=== PATIENT | male | born 1950 | race Caucasian/White ===

== ENCOUNTER 2017-12-17 09:30 | Outpatient (RCR) | payer MEDICARE, SELFPAY ==
--- NOTE | 2017-10-06 10:40 | HMH.PTOPWND ---
Rehab Outpt Wound Evaluation Rehab OP Wound Evaluation Start: 10/06/17 10:27 Freq: Status: Active Protocol: Document 10/06/17 10:27 DOUGLAS (Rec: 10/06/17 10:40 DOUGLAS [id number]) Electronically Signed By Rizwan De La Rosa, PT 10/06/17 10:27 Subjective/History History History Pt presents ~1.5 mos s/p sudden onset of necrotizing fasciitis while vacationing in [place] and requiring multiple left LE fasciotomies. He reports he was hospitalized for 22 days while receiving IV abx. He and his returned to [place] yesterday and his dressings were last changed 2 days ago. He currently reports only mild/moderate discomfort with the left LE and his edema has reduced considerably. Subjective Subjective Currently no c/o with dresing changes. Wound Eval Wound Left Lateral Heel Wound Type fasciotomy Wound Bed Appearance Beefy Red Yellow Percentage Granulated (%) 80 Percentage of Eschar (Yellow) (%) 20 Wound Margins Description Well Defined Drainage Description Serosanguineous Drainage Amount Small Drainage Odor No Odor Wound Topical Solution/Irrigant Saline Irrigant Packing Type Collagen Primary Dressing Silver Dressing Wound Secondary Dressing Type Gauze Pad Wound Debridement Method Forceps Left Medial Ankle Wound Type facsiotomy Wound Length (cm) 9.7 Wound Width (cm) 1.8 Wound Bed Appearance Beefy Red Percentage Granulated (%) 100 Wound Margins Description Well Defined Drainage Description Serosanguineous Drainage Amount Moderate Drainage Odor No Odor Dressing Status Soiled Wound Topical Solution/Irrigant Saline Irrigant Packing Type Collagen Primary Dressing Silver Dressing Wound Secondary Dressing Type Gauze Pad Wound Debridement Method Forceps Left Anterior Medial Vu Wound Type fasciotomy Wound Length (cm) 7.0 Wound Width (cm) 1.3 Wound Bed Appearance Beefy Red Percentage Granulated (%) 100 Wound Margins Description Well Defined Drainage Description
== END 2017-12-17 09:31 | disposition home or self-care (01) ==
LOC: PT 09:30
PROVIDERS: Family Provider Family Medicine; PCP Family Medicine; Visit Provider Family Medicine
DX: M72.6 Necrotizing fasciitis (principal)
CPT/HCPCS: 97140; 97163; 97597; 97598

== ENCOUNTER → 2018-05-31 13:21 | Outpatient (POV) | payer MEDICARE, SELFPAY | PROVIDERS: Family Provider Family Medicine; PCP Family Medicine; Visit Provider Dermatology | DX: Z00.00 Encounter for general adult medical examination without abnormal findings (principal) ==

== ENCOUNTER → 2018-11-16 08:33 | Outpatient (CLI) | payer MEDICARE, SELFPAY ==
[2018-11-24 23:20] LABS: F004-IgE Wheat <0.10 kU/L (Class 0); F024-IgE Shrimp <0.10 kU/L (Class 0); F040-IgE Tuna <0.10 kU/L (Class 0); F041-IgE Salmon <0.10 kU/L (Class 0); F338-IgE Scallop <0.10 kU/L (Class 0)
[2018-11-25 09:04] LABS: F013-IgE Peanut <0.10 kU/L (Class 0); F048-IgE Onion <0.10 kU/L (Class 0); Immunoglobulin E, Total <2 IU/mL (6-495)
== END ==
PROVIDERS: Visit Provider Allergy & Immunology
DX: T78.1XXA Other adverse food reactions, not elsewhere classified, initial encounter (principal); L29.9 Pruritus, unspecified; T78.40XA Allergy, unspecified, initial encounter
CPT/HCPCS: 36415; 82785; 86003

== ENCOUNTER → 2018-12-13 12:42 | Outpatient (POV) | payer MEDICARE, SELFPAY | PROVIDERS: Visit Provider Dermatology | DX: Z00.00 Encounter for general adult medical examination without abnormal findings (principal) ==

== ENCOUNTER → 2018-12-13 13:39 | Outpatient (CLI) | payer MEDICARE, SELFPAY ==
[2018-12-13 14:04] LABS: Microscopic, Urine URINE MICROSCOPIC (MICROSCOPIC)
[2018-12-13 14:47] LABS: Basophils % 0.3 % (0.1-2.0); Eosinophils # 0.1 K/mm3 (0.0-0.4); Eosinophils % 0.7 % (0.1-12.0); Hematocrit 45.7 % (42.0-52.0); Hemoglobin 15.6 g/dL (14.1-18.0); Lymphocytes # 1.1 K/mm3 (0.7-4.5); Lymphocytes % 15.3 % (10-50); Mean Corpuscular HGB Conc 34.1 g/dL (31.8-35.4); Mean Corpuscular Hemoglobin 33.1 pg (27.0-31.2); Mean Corpuscular Volume 97.3 fl (80-94); Mean Platelet Volume 7.5 fl (7.4-10.4); Monocytes # 0.7 K/mm3 (0.1-1.0); Monocytes % 9.4 % (1.7-9.3); Neutrophils # 5.1 K/mm3 (1.8-7.8); Neutrophils % 74.1 % (37.0-80.0); Platelet Count 211 K/mm3 (142-424); Red Blood Count 4.69 M/mm3 (4.60-6.20); Red Cell Distribution Width 13.1 % (11.5-17.5); White Blood Count 6.9 K/mm3 (4.8-10.8)
[2018-12-13 14:58] LABS: Appearance,Urine CLEAR (Clear); Bilirubin,Urine Negative (Negative); Blood, Urine Negative (Negative); Color,Urine YELLOW (Yellow); Glucose,Urine (UA) Negative (Negative); Ketones,Urine Negative (Negative); Leukocyte Esterase,Urine Negative (Negative); Nitrate,Urine Negative (Negative); Protein,Urine Negative (Negative); Urobilinogen,Urine 0.2 EU/dl (0.2)
[2018-12-13 15:13] LABS: Bacteria,Urine Trace /lpf; Squamous Epithelial Cell,Urine Occasional #/hpf (0-5); WBC,Urine Occasional #/hpf (0-3)
[2018-12-13 16:39] LABS: Alanine Aminotransferase 80 U/L (12-78); Albumin Level 4.4 gm/dL (3.4-5.0); Albumin/Globulin Ratio 1.5 (1.1-1.8); Alkaline Phosphatase 63 U/L (46-116); Anion Gap 17.4 mEq/L (5-15); Aspartate Amino Transferase 30 U/L (15-37); Bilirubin,Total 0.6 mg/dL (0.2-1.0); Blood Urea Nitrogen 25 mg/dL (7-18); Calcium 9.1 mg/dL (8.5-10.1); Carbon Dioxide 23 mmol/L (21.0-32.0); Chloride 105 mmol/L (98-107); Creatinine,Serum 0.91 mg/dL (0.70-1.30); Estimated Glomerular Filt Rate 83 ml/min (>60); GFR (African American) 100 ML/MIN (>60); Globulin 2.9 gm/dl (1.3-3.2); Glucose 96 mg/dL (74-106); Lactate Dehydrogenase 205 U/L (82-234); Potassium 4.4 mmoL/L (3.5-5.1); Sodium 141 mmol/L (136-145); T4 (Thyroxine) 4.7 ug/dl (4.7-13.3); Thyroid Stimulating Hormone 1.64 uIU/ml (0.358-3.740); Total Protein,Serum 7.3 gm/dL (6.4-8.2)
[2018-12-17 06:40] LABS: QuantiFERON-TB Gold Plus Negative (Negative)
== END ==
PROVIDERS: Visit Provider Dermatology
DX: L63.8 Other alopecia areata (principal); L30.8 Other specified dermatitis
CPT/HCPCS: 36415; 80053; 81001; 83615; 84436; 84443; 85025; 86480

== ENCOUNTER → 2020-03-04 08:42 | Outpatient (CLI) | payer MEDICARE, SELFPAY ==
[2020-03-04 10:23] LABS: Coronavirus 19 IgM Antibody Negative (Negative)
[2020-03-04 10:30] LABS: Coronavirus 19 IgG Antibody Positive (Negative)
== END ==
PROVIDERS: Visit Provider Ophthalmology
DX: Z01.818 Encounter for other preprocedural examination (principal)
CPT/HCPCS: 36415; 86328

== ENCOUNTER 2020-03-05 07:41 | Day surgery (SDC) | payer MEDICARE, SELFPAY ==
[2020-02-29 15:56] VITALS: BMI 25.0
[2020-03-05 07:58] VITALS: BP 142/92; PULSE 59; RESP 20; TEMP 36.3; O2SAT 96
[2020-03-05 09:06] VITALS: BP 155/88; PULSE 48; RESP 20; O2SAT 98
[2020-03-05 09:11] VITALS: BP 152/97; PULSE 51; RESP 18; O2SAT 98
[2020-03-05 09:16] VITALS: BP 160/97; PULSE 52; RESP 18; O2SAT 98
[2020-03-05 09:21] VITALS: BP 154/96; PULSE 53; RESP 20; O2SAT 99
[2020-03-05 09:25] VITALS: BP 151/89; PULSE 53; RESP 16; TEMP 36.3; O2SAT 97
== END 2020-03-05 09:30 | disposition home or self-care (01) ==
LOC: OR 07:43
PROVIDERS: PCP Family Medicine; Visit Provider Ophthalmology
DX: H26.9 Unspecified cataract (principal); H53.8 Other visual disturbances; M19.90 Unspecified osteoarthritis, unspecified site; H91.90 Unspecified hearing loss, unspecified ear; E78.00 Pure hypercholesterolemia, unspecified
CPT/HCPCS: 66984; V2632

== ENCOUNTER → 2020-03-18 08:43 | Outpatient (CLI) | payer MEDICARE, SELFPAY ==
[2020-03-18 11:09] LABS: Coronavirus 19 IgM Antibody Negative (Negative)
[2020-03-18 12:26] LABS: Coronavirus 19 IgG Antibody Positive (Negative)
== END ==
PROVIDERS: Visit Provider Ophthalmology
DX: Z01.818 Encounter for other preprocedural examination (principal); H26.9 Unspecified cataract
CPT/HCPCS: 36415; 86328

== ENCOUNTER 2020-03-19 06:37 | Day surgery (SDC) | payer MEDICARE, SELFPAY ==
[2020-03-13 08:24] VITALS: BMI 25.0
[2020-03-19 07:09] VITALS: BP 135/79; PULSE 57; RESP 20; TEMP 36.1; O2SAT 94
[2020-03-19 08:20] VITALS: BP 166/81; PULSE 54; RESP 20; O2SAT 98
[2020-03-19 08:25] VITALS: BP 158/89; PULSE 55; RESP 20
[2020-03-19 08:30] VITALS: BP 157/93; PULSE 55; RESP 18; O2SAT 97
[2020-03-19 08:35] VITALS: BP 156/94; PULSE 61; RESP 18; O2SAT 98
[2020-03-19 08:39] VITALS: BP 156/81; PULSE 58; RESP 20; TEMP 36.4; O2SAT 97
== END 2020-03-19 08:49 | disposition home or self-care (01) ==
LOC: OR 06:40
PROVIDERS: PCP Family Medicine; Visit Provider Ophthalmology
DX: H26.9 Unspecified cataract (principal); M19.90 Unspecified osteoarthritis, unspecified site; E78.00 Pure hypercholesterolemia, unspecified; H91.90 Unspecified hearing loss, unspecified ear; Z79.899 Other long term (current) drug therapy
CPT/HCPCS: 66984; V2632

== ENCOUNTER → 2021-07-03 08:47 | Outpatient (POV) | payer MEDICARE, SELFPAY | PROVIDERS: Visit Provider Audiologist | DX: Z00.00 Encounter for general adult medical examination without abnormal findings (principal) ==

== ENCOUNTER → 2021-08-01 10:14 | Outpatient (CLI) | payer MEDICARE, SELFPAY ==
[2021-08-01 11:01] LABS: Basophils % 0.6 % (0.1-2.0); Eosinophils # 0.1 K/mm3 (0.0-0.4); Eosinophils % 1.5 % (0.1-12.0); Hematocrit 49.1 % (42.0-52.0); Hemoglobin 17.3 g/dL (14.1-18.0); Lymphocytes # 0.8 K/mm3 (0.7-4.5); Lymphocytes % 13.9 % (10-50); Mean Corpuscular HGB Conc 35.1 g/dL (31.8-35.4); Mean Corpuscular Hemoglobin 35.2 pg (27.0-31.2); Mean Corpuscular Volume 100.1 fl (80-94); Mean Platelet Volume 8.5 fl (7.4-10.4); Monocytes # 0.6 K/mm3 (0.1-1.0); Monocytes % 10.7 % (1.7-9.3); Neutrophils # 4.2 K/mm3 (1.8-7.8); Neutrophils % 73.3 % (37.0-80.0); Platelet Count 204 K/mm3 (142-424); Red Blood Count 4.91 M/mm3 (4.60-6.20); Red Cell Distribution Width 12.7 % (11.5-17.5); White Blood Count 5.7 K/mm3 (4.8-10.8)
[2021-08-01 11:26] LABS: Hemoglobin A1C 5.9 % (4.0-6.0)
[2021-08-01 11:34] LABS: Alanine Aminotransferase 63 U/L (12-78); Albumin Level 4.6 g/dl (3.5-5.0); Albumin/Globulin Ratio 1.7 (1.1-1.8); Alkaline Phosphatase 57 U/L (38-126); Anion Gap 8.7 mEq/L (5-15); Aspartate Amino Transferase 45 U/L (17-59); Bilirubin,Total 0.7 mg/dl (0.2-1.3); Blood Urea Nitrogen 13 mg/dl (9-20); Calcium 9.4 mg/dl (8.4-10.2); Carbon Dioxide 29 mmol/L (22.0-30.0); Chloride 104 mmol/L (98-107); Chol/HDL Ratio 2.6 (1-3.5); Cholesterol 205 mg/dl (140-200); Estimated Glomerular Filt Rate 111 ml/min (>60); GFR (African American) 135 ML/MIN (>60); Globulin 2.7 g/dL (1.3-3.2); Glucose 119 mg/dl (74-100); HDL Cholesterol 80 mg/dl (40-60); Potassium 4.7 mmoL/L (3.5-5.1); Sodium 137 mmol/L (136-145); Total Protein,Serum 7.3 g/dl (6.3-8.2); Triglycerides 78 mg/dl (30-150); Uric Acid 6.1 mg/dl (3.5-8.5); VLDL Cholesterol 16 mg/dL (0-40)
[2021-08-01 11:45] LABS: Direct LDL Cholesterol 116.95 mg/dL (100-129)
[2021-08-01 12:05] LABS: Thyroid Stimulating Hormone 1.52 uIU/mL (0.465-4.68)
== END ==
PROVIDERS: Visit Provider Family Medicine
DX: R03.0 Elevated blood-pressure reading, without diagnosis of hypertension (principal); R73.01 Impaired fasting glucose; E78.5 Hyperlipidemia, unspecified
CPT/HCPCS: 36415; 80053; 80061; 83036; 84443; 84550; 85025

== ENCOUNTER → 2021-08-04 07:50 | Outpatient (CLI) | payer MEDICARE, SELFPAY ==
--- NOTE | 2021-08-04 07:51 | MR_ITS ---
PROCEDURE: MR HEAD/BRAIN WO/W CON CLINICAL INDICATION: left hearing loss COMPARISON: No exams were available for comparison TECHNIQUE: Routine multiplanar multi echo sequences are performed without gadolinium enhancement. FINDINGS: No midline shift, mass effect, intracranial hemorrhage, or hydrocephalus. No enhancing lesions. Thin section pre and post axial and coronal images are obtained of the cerebellopontine angles. No CP angle mass or abnormal enhancement. No evidence of acute infarction. The pituitary, optic chiasm, corpus callosum, and craniocervical junction have an unremarkable appearance. No mastoid effusion or sinus air-fluid level. IMPRESSION: No acute intracranial findings. No evidence of cerebellopontine angle mass. Dictated by: Phoenix Aceves MD 08/05/2021 08:39 Phoenix Aceves MD in [place] 08/05/2021 08:39
== END ==
PROVIDERS: PCP Family Medicine; Visit Provider Otolaryngology
DX: H61.22 Impacted cerumen, left ear (principal); H90.42 Sensorineural hearing loss, unilateral, left ear, with unrestricted hearing on the contralateral side
CPT/HCPCS: 70553; A9576

== ENCOUNTER 2022-10-16 07:17 | Day surgery (SDC) | payer MEDICARE, SELFPAY ==
[2022-10-14 14:05] VITALS: BMI 26.7
[2022-10-16 07:33] VITALS: BP 144/96; PULSE 85; RESP 18; TEMP 36.3; O2SAT 98
--- NOTE | 2022-10-16 08:16 | P.PN_ITS ---
[facility] Disclaimer: The information contained in this section may have been updated after the patient was seen, as this information can be updated by other users. Medical History History of gastroesophageal reflux (GERD) Hyperlipidemia Leg wound, left Rheumatoid arthritis Surgical History History of surgery on lower extremity Family History Other Family history of cancer Family history of diabetes mellitus type II Social History Smoking Status: Never smoker alcohol intake: current substance use type: denies use current occupational status: retired Travel in the last 8 weeks: Inside the [place] household members: spouse housing: house marital status: education level: college current occupational exposures/hazards: No caffeine: Yes special josh needs: No agree to transfusion: No do you feel safe at home: Yes victim of physical abuse: No victim of emotional abuse: No victim of sexual abuse: No would you like helpful sources: No [facility] Anesthesia Checklist Patient Identification Patient Identification: Arm Band Structural Data Admitted From: Home Planned Operative Procedure/s: colonoscopy Consent for Planned Operative Procedure(s) Verified: Yes Verified Documents: Surgical Consent and History and Physical NPO Status Verified Time NPO: 00:00 Additional verifications Anesthesia Reactions: No Airway Assessment C-Spine Mobility Assessed: Yes TMJ Mobility Assessed: Yes Dentition: Good Dentition Neurological Assessment Level of Consciousness: Awake and Alert Anesthesia Plan Anesthesia Risk discussed: Yes Anesthesia Plan: Verified ASA Class: II Anesthesia Type: MAC
[2022-10-16 08:21] VITALS: O2SAT 98
[2022-10-16 09:00] VITALS: BP 94/57; PULSE 64; RESP 16; TEMP 36.6; O2SAT 92
--- NOTE | 2022-10-16 09:00 | P.PCN_ITS ---
Procedure: Date: 10/16/22 Patient Date of :: 1950 Procedure Performed:: Total colonoscopy to terminal ileum Indications:: Patient is a 72-year-old male referred for screening colonoscopy for history of polyps. 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 I did colonoscopy on 04/07/2016 and he had several polyps. He underwent MiraLAX prep Performing Provider:: Greg Medina MD Referring Provider:: Sam Ramos Sedation:: MAC sedation Procedure:: Patient history was obtained and appropriate physical examination was performed. Patient's medications and allergies were reviewed. Informed consent was obtained after explaining the benefits, alternatives, and risks of the procedure including, but not limited to, bleeding, perforation, missed lesions, and adv erse reaction to anesthesia medications. Patient was transported to endoscopy procedure room. Patient was connected to monitoring devices. Throughout the procedure the patient's blood pressure, pu lse, and oxygen saturations were monitored continuously. Patient identification and planned procedure were verified by the staff. Patient was positioned in lateral decubitus position. Digital anorectal exam was performed. Variable stiffness Olympus colonoscope was inserted and advanced under direct visualization to the cecum. Adequacy of the colonic preparation was noted. The colonoscope was advanced a short distance into the terminal ileum. The colonoscope was then slowly withdrawn while carefully examining the color, texture, anatomy, and integrity of the mucosoa circumferentially. Within the rectum retroflexion was performed. Colonoscope was then withdrawn. Findings:: Colonic preparation was rather poor with stool adherent to the jacobs of the colon. Despite high-volume trans colonoscopic irrigation and suctioning this was unable to be cleared. Colonoscope was withdrawn through the colon with surveillance using high-volume irrigation and suctioning. There were no large polyps or masses. Retroflexion revealed prolapsing internal hemorrhoids. Recommendations:: Repeat colonoscopy a couple of years with maximum prep. Complications:: None immediate Estimated blood obtained (mL): 0
[2022-10-16 09:10] VITALS: BP 91/56; PULSE 61; RESP 16; O2SAT 91
[2022-10-16 09:20] VITALS: BP 94/62; PULSE 64; RESP 16; O2SAT 95
[2022-10-16 09:30] VITALS: BP 107/74; PULSE 66; RESP 16; TEMP 36.6; O2SAT 99
--- NOTE | 2022-10-16 10:29 | SUR.PHASEII ---
follow-up not needed. spoke w/ office staff and made them aware that he will need to be rescheduled for another colonoscopy w/ extended/ diff prep
== END 2022-10-16 09:40 | disposition home or self-care (01) ==
PROVIDERS: PCP Family Medicine; Visit Provider Surgery
PROC: 0DJD8ZZ Inspection of Lower Intestinal Tract, Via Natural or Artificial Opening Endoscopic (ICD-10-PCS; principal; 2022-10-16 08:30)
DX: Z12.11 Encounter for screening for malignant neoplasm of colon (principal); Z86.010 Personal history of colon polyps; Z91.199 Patient's noncompliance with other medical treatment and regimen due to unspecified reason; K64.8 Other hemorrhoids; Z79.899 Other long term (current) drug therapy
CPT/HCPCS: G0105; J2704

== ENCOUNTER → 2024-03-03 08:39 | Outpatient (CLI) | payer MEDICARE, SELFPAY | LOC: SL 08:41 | PROVIDERS: PCP Family Medicine; Visit Provider Family Medicine | DX: G47.33 Obstructive sleep apnea (adult) (pediatric) (principal) | CPT/HCPCS: G0399 ==

== ENCOUNTER 2025-06-15 07:24 | Day surgery (SDC) | payer MEDICARE, SELFPAY ==
[2025-06-12 14:01] VITALS: BMI 27.8
[2025-06-15] VITALS (7 sets, daily range): BP systolic 83–150; BP diastolic 38–102; PULSE 65–88; RESP 16–18; TEMP 36.4; O2SAT 91–96
[2025-06-15] MEDS: LACTATED RINGERS 1000ML 1,000 ML 50 ML IV (08:00)
--- NOTE | 2025-06-15 08:05 | P.PNANES_ITS ---
[facility] Disclaimer: The information contained in this section may have been updated after the patient was seen, as this information can be updated by other users. Medical History Leg wound, left Rheumatoid arthritis History of gastroesophageal reflux (GERD) Hyperlipidemia Surgical History History of surgery on lower extremity Family History Other Family history of cancer Family history of diabetes mellitus type II Social History (Updated 06/15/25 @ 07:54 by Judith Haines RN) Smoking Status: Never smoker alcohol intake: current alcohol intake frequency: 3 or more drinks per day substance use type: denies use current occupational status: retired Travel in the last 8 weeks?: Inside the [place] household members: spouse housing: house marital status: education level: college current occupational exposures/hazards: No caffeine: Yes special josh needs: No agree to transfusion: No do you feel safe at home: Yes victim of physical abuse: No victim of emotional abuse: No victim of sexual abuse: No would you like helpful sources: No Have you lived/traveled outside US in past 30 days?: No Contact w/someone who lives/traveled outside US past 30 days?: No Exposure to someone with infectious disease in past 14 days?: No Do you have a fever (greater than 100.4 F or 38 C)?: No Have you tested positive for COVID-19?: No Exposed to someone with COVID-19 in past 14 days?: No Do you have a sore throat?: No Do you have a cough?: No Do you have any weakness?: No Are you experiencing any nausea/vomitting?: No Do you have any diarrhea?: No Are you experiencing any unusual bleeding?: No Do you have any muscle aches/pain?: No Do you have any abdominal pain?: No Are you experiencing loss of taste or smell?: No [facility] Anesthesia Checklist Patient Identification Patient Identification: Arm Band and Verbal (Name & ) Structural Data Admitted From: Home Planned Operative Procedure/s: Colonoscopy Verified Documents: Surgical Consent NPO Status Verified Time NPO: 00:00 Chart Verification Results Verified: None Additional verifications Fingerstick Blood Glucose: 129 Anesthesia Reactions: No Airway Assessment Mallampati Score:: Class II C-Spine Mobility Assessed: Yes TMJ Mobility Assessed: Yes Dentition: Good Dentition Neurological Assessment Level of Consciousness: Awake, Alert and Appropriate Hx Seizures: No Numbness or tingling in extremities: No Anesthesia Plan Anesthesia Risk discussed: Yes Anesthesia Plan: Verified ASA Class: II Anesthesia Type: MAC
[2025-06-15 08:06] LABS: POC Glucose,Bedside 129 gm/dL (70-110)
--- NOTE | 2025-06-15 08:33 | EXP.GEN.HP ---
HPI HPI HPI: Patient presents for follow-up colonoscopy due to history of polyps. He is a 74-year-old male who had a colonoscopy [place] [address] Catrachito Dumont which revealed a sigmoid ganglioneuroma. I had performed colonoscopy on 04/07/2016 and he had several polyps. Follow-up colonoscopy on 10/16/2022 revealed rather poor colonic preparation with stool adherent to the jacobs of the colon. Despite high-volume trans colonoscopic irrigation and suctioning this was unable to be fully cleared. There were no obvious large polyps. Recommendations were for follow-up colonoscopy in 2 years with maximum prep. [facility] Disclaimer: The information contained in this section may have been updated after the patient was seen, as this information can be updated by other users. Medical History (Updated 06/15/25 @ 08:35 by Greg Medina MD) Leg wound, left Rheumatoid arthritis History of gastroesophageal reflux (GERD) Hyperlipidemia Surgical History History of surgery on lower extremity Family History Family history of cancer Family history of diabetes mellitus type II Social History (Updated 06/15/25 @ 07:54 by Judith Haines RN) Smoking Status: Never smoker alcohol intake: current alcohol intake frequency: 3 or more drinks per day substance use type: denies use current occupational status: retired Travel in the last 8 weeks?: [place] the [place] household members: spouse housing: house marital status: education level: college current occupational exposures/hazards: No caffeine: Yes special josh needs: No agree to transfusion: No do you feel safe at home: Yes victim of physical abuse: No victim of emotional abuse: No victim of sexual abuse: No would you like helpful sources: No Have you lived/traveled outside US in past 30 days?: No Contact w/someone who lives/traveled outside US past 30 days?: No Exposure to someone with infectious disease in past 14 days?: No Do you have a fever (greater than 100.4 F or 38 C)?: No Have you tested positive for COVID-19?: No Exposed to someone with COVID-19 in past 14 days?: No Do you have a sore throat?: No Do you have a cough?: No Do you have any weakness?: No Are you experiencing any nausea/vomitting?: No Do you have any diarrhea?: No Are you experiencing any unusual bleeding?: No Do you have any muscle aches/pain?: No Do you have any abdominal pain?: No Are you experiencing loss of taste or smell?: No Other Medical History Have you received the Flu Vaccine for this season: No Have you received the Pneumonia Vaccine: No Meds Home Medications and Allergies Home Medications ?Medication ?Instructions ?Recorded ?Confirmed ?Type atorvastatin 40 mg tablet 40 mg PO HS cholesterol 02/29/20 06/15/25 History meloxicam 15 mg tablet 15 mg PO NEEDED PRN Pain 10/14/22 06/15/25 History sodium,potassium,mag sulfates 17.5 See Rx Instructions PO .COMPLEX 05/23/25 06/12/25 Rx gram-3.13 gram-1.6 gram oral soln #354 mL (Suprep Bowel Prep Kit) sodium sul 1.479 gram-potas ch See Rx Instructions PO PER PKG DIR 05/29/25 06/12/25 Rx 0.188 gram-magnes sul 0.225 gram #24 tabs tablet (Sutab) losartan 50 mg tablet 50 mg PO DAILY 06/12/25 06/15/25 History omeprazole 20 mg capsule,delayed 20 mg PO DAILY 06/15/25 06/15/25 History release New Prescriptions to Start Prescriptions: Allergies Allergy/AdvReac Type Severity Reaction Status Date / Time morphine Allergy Other Verified 06/15/25 07:47 Exam Data for Last 24 hours Vital signs and Labs for Last 24 Hours: Temp Pulse Resp BP Pulse Ox O2 Del Method 97.5 F L 88 18 150/102 H 96 Room Air 06/15/25 07:42 06/15/25 07:42 06/15/25 07:42 06/15/25 07:42 06/15/25 07:42 06/15/25 07:42 Laboratory Results - last 24 hr 06/15/25 07:57: POC Glucose 129 H I & O for Last 24 hours: Intake & Output 06/12/25 06/13/25 06/14/25 06/15/25 11:59 11:59 11:59 11:59 Weight 205 lb Constitutional Constitutional: no acute distress *Routine HEENT Exam Head: Present normocephalic Eye: Present EOMI and PERRL ENT: Present mucous membranes moist *Routine Neck Exam Neck: Present supple; Absent lymphadenopathy *Routine Respiratory Exam Respiratory: Present CTA bilaterally *Routine Cardiovascular Exam Cardiovascular: Present RRR *Routine Abdominal Exam Abdominal: Present soft and normoactive bowel sounds; Absent tenderness *Routine Rectal Exam Rectal:: deferred *Routine Genitalia Exam Genitalia:: deferred *Routine Extremities Exam Extremities: Absent cyanosis, clubbing or edema *Routine Skin Exam Skin: Present warm; Absent rash *Routine Neurological Exam Neurological: Present alert and oriented X3 Results Results Lab Results Last 24 Hours:: Laboratory Results - last 24 hr 06/15/25 07:57: POC Glucose 129 H Assessment and Plan *Assessment and plan (1) History of colon polyps: Status: Acute Category: Medical Code(s): Z86.0100 - Personal history of colon polyps, unspecified Plan Colonoscopy
--- NOTE | 2025-06-15 09:15 | P.PCN_ITS ---
Procedure: Date: 06/15/25 Patient Date of :: 1950 Procedure Performed:: Total colonoscopy to terminal ileum with polypectomy using biopsy forceps Indications:: Patient presents for follow-up colonoscopy due to history of polyps. He is a 74-year-old male who had a colonoscopy [place] [address] Catrachito Dumont which revealed a sigmoid ganglioneuroma. I had performed colonoscopy on 04/07/2016 and he had several polyps. Follow-up colonoscopy on 10/16/2022 revealed rather poor colonic preparation with stool adherent to the jacobs of the colon. Despite high-volume trans colonoscopic irrigation and suctioning this was unable to be fully cleared. There were no obvious large polyps. Recommendations were for follow- up colonoscopy in 2 years with maximum prep . Performing Provider:: Greg Medina MD Referring Provider:: Sam Ramos MD Sedation:: MAC sedation Procedure:: Patient history was obtained and appropriate physical examination was performed. Patient's medications and allergies were reviewed. Informed consent was obtained after explaining the benefits, alternatives, and risks of the procedure including, but not limited to, bleeding, perforation, missed lesions, and adverse reaction to anesthesia medications. Patient was transported to endoscopy procedure room. Patient was connected to monitoring devices. Throughout the procedure the patient's blood pressure, pulse, and oxygen saturations were monitored continuously. Patient identification and planned procedure were verified by the staff. Patient was positioned in lateral decubitus position. Digital anorectal exam was performed. Variable stiffness Olympus colonoscope was inserted and advanced under direct visualization to the cecum. Adequacy of the colonic preparation was noted. The colonoscope was advanced a short distance into the terminal ileum. The colonoscope was then slowly withdrawn while carefully examining the color, texture, anatomy, and integrity of the mucosoa circumferentially. Within the rectum retroflexion was performed. Colonoscope was then withdrawn. Impression: Colonic preparation was good. There was some redundancy of the colon which required abdominal pressure for advancement of the colonoscope to the cecum. In the rectosigmoid colon there was subtle possible hyperplastic polyp removed with biopsy forceps. Just distal to this there was a subtle irregularity biopsied which is likely inconsequential. This was sent as colon polyps x 2 at the rectosigmoid. . Findings:: Possible polyps as noted Recommendations:: Repeat colonoscopy pending pathology. If benign likely 5 to 7 years due to previous history of precancerous polyps and ganglioneuroma Complications:: None immediately apparent Estimated blood obtained (mL): 1 Colonoscopy Component Colonoscopy Component Was a colonoscopy performed during today's procedure?: Yes Recommended follow up colonoscopy of at least 10 years?: No If no, follow up colonoscopy recommended in ___ years?: See above Reason for not recommending >/= 10 yr follow-up interval?: See above
== END 2025-06-15 10:23 | disposition home or self-care (01) ==
PROVIDERS: PCP Family Medicine; Visit Provider Surgery
PROC: 0DJD8ZZ Inspection of Lower Intestinal Tract, Via Natural or Artificial Opening Endoscopic (ICD-10-PCS; principal; 2025-06-15 08:30)
DX: D12.7 Benign neoplasm of rectosigmoid junction (principal); E78.5 Hyperlipidemia, unspecified; M06.9 Rheumatoid arthritis, unspecified; K21.9 Gastro-esophageal reflux disease without esophagitis; Z86.0100 Personal history of colon polyps, unspecified; Z88.5 Allergy status to narcotic agent; Z79.1 Long term (current) use of non-steroidal anti-inflammatories (NSAID); Z79.899 Other long term (current) drug therapy
CPT/HCPCS: 45380; 82962; 88305; J2003; J2704; J7120